=== PATIENT | female | born 1970 | race Caucasian/White ===

== ENCOUNTER → 2017-09-21 | Outpatient (CLI) | payer OTHER ==
[~2017-09-21] MED LIST: AMOX875T60 PO; DULO30CA35 PO; FOLI-68 PO; GEMF600T91 PO; GLY5 PO; HCTZ25 PO; HYDR-385 PO; IRO150 PO; KET10 PO; L.AC1CAP4 PO; LACT1CAP2 PO; LISI-362 PO; LORA10CA3 PO; METANXPT PO; METF-420 PO; NORG1TAB61 PO; OMEP-114 PO; OMEP-153 PO; OXY5 PO; PER PO; POTA99TA13 PO; PREG75CA60 PO; SITA100T PO; VICOPROFPT PO; VITA1CAP46 PO
--- NOTE | 2017-09-23 09:06 | RADIOLOGY IMAGING REPORT ---
FACILITY: [facility] [place] PATIENT NAME: SALVADOR GRULLON : [id number] MR: [id number] V: [id number] EXAM DATE: [id number] ORDERING PHYSICIAN: [place] WASHBURN TECHNOLOGIST: Emi Scott PROCEDURE:BILATERAL DIGITAL SCREENING MAMMOGRAM WITH CAD ASSISTED INTERPRETATION & 3D TOMOSYNTHESIS COMPARISON:Prior mammograms 10/05/13. INDICATIONS:SCREENING FINDINGS: Moderately heterogeneous fibroglandular tissue is seen throughout the breasts. The parenchymal pattern has remained stable allowing for difference in mammographic technique & patient positioning. There is no evidence of malignant appearing mass, malignant appearing calcifications or other secondary sign of malignancy in either breast. DIAGNOSTIC CATEGORY 1--NEGATIVE. RECOMMENDATIONS: ROUTINE MAMMOGRAM AND CLINICAL EVALUATION. IMPRESSION: BIRADS 1: Negative. No significant abnormality is seen. Dictated by: Neema Malik M.D. on 09/21/2017 at 17:23 Transcribed by: CAMILLA on 09/22/2017 at 7:51 Approved by: Neema Malik M.D. on 09/23/2017 at 9:06 [facility]
== END ==
LOC: MAMO 01:22
PROVIDERS: ATTEND Nurse Practitioner Family
DX: Z12.31 Encounter for screening mammogram for malignant neoplasm of breast (principal)
CPT/HCPCS: 77063; 77067